=== PATIENT | male | born 1945 ===

== ENCOUNTER 2019-03-21 08:05 | Day surgery (SDC) | payer MEDICARE, OTHER ==
[~2019-03-21] VITALS: Ht 172.7 cm; Wt 96.8 kg
[2019-03-21] MEDS ORDERED: ATOR40TA (08:40)
[2019-03-21] MEDS ORDERED: MULTI VITAMIN1 EACH (08:46)
--- NOTE | 2019-03-21 08:55 | NUR ---
03/21/19 0855 Salma Loya 4 IV ATTEMPTS 1ST IN R HAND RXS UNSUCCESSFUL 2ND IN RAC RXS UNSUCCESSFUL 3RD IN R FOREARM AXE UNSUCCESSFUL 4TH IN L HAND SUCCESSFUL
== END 2019-03-21 10:03 | disposition home or self-care (01) ==
LOC: ORSCSDS 08:05
PROVIDERS: Surgery
PROC: 0DBL8ZX Excision of Transverse Colon, Via Natural or Artificial Opening Endoscopic, Diagnostic (ICD-10-PCS; principal; 2019-03-21 09:15)
DX: Z12.11 Encounter for screening for malignant neoplasm of colon (principal); Z86.010 Personal history of colon polyps; K63.5 Polyp of colon; K57.30 Diverticulosis of large intestine without perforation or abscess without bleeding; Z87.891 Personal history of nicotine dependence; Z79.899 Other long term (current) drug therapy
CPT/HCPCS: 82947; 88305; J2704; J7120

== ENCOUNTER 2025-03-06 11:51 | Day surgery (SDC) | payer MEDICARE ==
[~2025-03-06] VITALS: Ht 170.2 cm; Wt 97.0 kg
[~2025-03-06 11:51] MED LIST: ATOR40TA; Lactated Ringer's 1,000 ML IV ONE; MULTI VITAMIN1 EACH
[2025-03-06] MEDS ORDERED: propofoL 50 ML IV ONE ×2 (12:04→13:42)
[2025-03-06] MEDS ORDERED: Lactated Ringer's 1,000 ML IV ONE (12:32)
== END 2025-03-06 14:25 | disposition home or self-care (01) ==
LOC: ORSCSDS 11:51
PROVIDERS: Surgery
PROC: 0DBH8ZX Excision of Cecum, Via Natural or Artificial Opening Endoscopic, Diagnostic (ICD-10-PCS; principal; 2025-03-06 13:15)
PROC: 0DBN8ZX Excision of Sigmoid Colon, Via Natural or Artificial Opening Endoscopic, Diagnostic (ICD-10-PCS; principal; 2025-03-06 13:15)
PROC: 0DBK8ZX Excision of Ascending Colon, Via Natural or Artificial Opening Endoscopic, Diagnostic (ICD-10-PCS; principal; 2025-03-06 13:15)
DX: K92.1 Melena (principal); K57.90 Diverticulosis of intestine, part unspecified, without perforation or abscess without bleeding; Z86.0100 Personal history of colon polyps, unspecified; D12.0 Benign neoplasm of cecum; K63.5 Polyp of colon; J44.89 Other specified chronic obstructive pulmonary disease; I25.10 Atherosclerotic heart disease of native coronary artery without angina pectoris; E78.5 Hyperlipidemia, unspecified; E03.9 Hypothyroidism, unspecified; E66.09 Other obesity due to excess calories; Z68.33 Body mass index [BMI] 33.0-33.9, adult; Z79.899 Other long term (current) drug therapy; Z79.84 Long term (current) use of oral hypoglycemic drugs
CPT/HCPCS: 88305; J2704; J7120